=== PATIENT | female | born 1995 | race Caucasian/White ===

== ENCOUNTER 2020-01-01 09:00 | Outpatient (RCR) | payer OTHER, SELFPAY ==
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
== END 2020-01-01 09:05 | disposition home or self-care (01) ==
LOC: PT 09:00
PROVIDERS: PCP Nurse Practitioner Family; Visit Provider Nurse Practitioner Family
DX: M25.552 Pain in left hip (principal); M25.551 Pain in right hip
CPT/HCPCS: 20560; 97010; 97014; 97035; 97110; 97163; G0283

== ENCOUNTER → 2020-05-17 09:22 | Outpatient (CLI) | payer OTHER, SELFPAY ==
[2020-05-17 10:04] LABS: Basophils % 0.2 % (0.1-2.0); Eosinophils # 0.2 K/mm3 (0.0-0.4); Eosinophils % 2.4 % (0.1-12.0); Hematocrit 41.3 % (37.0-47.0); Hemoglobin 14.5 g/dL (12.2-16.2); Lymphocytes # 2.3 K/mm3 (0.7-4.5); Lymphocytes % 28.8 % (10-50); Mean Corpuscular HGB Conc 35.1 g/dL (31.8-35.4); Mean Corpuscular Hemoglobin 33.3 pg (27.0-31.2); Mean Corpuscular Volume 94.7 fl (81-99); Mean Platelet Volume 7.7 fl (7.4-10.4); Monocytes # 0.4 K/mm3 (0.1-1.0); Monocytes % 4.7 % (1.7-9.3); Neutrophils # 5.1 K/mm3 (1.8-7.8); Platelet Count 317 K/mm3 (142-424); Red Blood Count 4.36 M/mm3 (4.20-5.40); Red Cell Distribution Width 12.8 % (11.5-17.5); White Blood Count 7.9 K/mm3 (4.8-10.8)
[2020-05-18 08:40] LABS: HIV Screen 4th Generation wRfx Non Reactive (Non Reactive)
[2020-05-18 11:01] LABS: Hepatitis B Surface Antigen Negative (Negative); Hepatitis C Antibody <0.1 s/co ratio (0.0-0.9); Rapid Plasma Reagin Ab Titer Non Reactive (NonRea<1:1); Rubella Antibodies, IgG 1.18 index (Immune >0.99)
== END ==
PROVIDERS: Visit Provider Nurse Practitioner Obstetrics & Gynecology
DX: Z34.90 Encounter for supervision of normal pregnancy, unspecified, unspecified trimester (principal)
CPT/HCPCS: 36415; 85025; 86592; 86703; 86762; 86850; 87340; 87380; G0432

== ENCOUNTER → 2020-05-26 14:31 | Outpatient (CLI) | payer OTHER, SELFPAY ==
--- NOTE | 2020-05-26 14:32 | US_ITS ---
PROCEDURE: US OB TRANSVAGINAL CLINICAL INDICATION: for dates Evaluate gestational age COMPARISON: No exams were available for comparison FINDINGS: An intrauterine gestational sac is present with a pole with a crown-rump length of 2.1cm correlating to gestational age of 8weeks 6days. heart tones are present with an FHR of 170bpm. Yolk sac is noted. Nabothian cyst is noted. 2.6 cm corpus luteum cyst of the right ovary IMPRESSION: Live IUP at 8 weeks 6 days Estimated due date by Ultrasound is 12/30/2020 Dictated by: Eriberto Isidro MD 05/26/2020 16:50 Electronically signed by Eriberto Isidro MD in [place] 05/26/2020 16:50
== END ==
PROVIDERS: PCP Nurse Practitioner Family; Visit Provider Nurse Practitioner Obstetrics & Gynecology
DX: Z34.90 Encounter for supervision of normal pregnancy, unspecified, unspecified trimester (principal)
CPT/HCPCS: 76817

== ENCOUNTER → 2020-07-22 05:37 | Outpatient (CLI) | payer OTHER, SELFPAY ==
[2020-07-24 00:24] LABS: Covid-19 Nasal PCR Sendout Lex POSITIVE
== END ==
PROVIDERS: PCP Nurse Practitioner Family; Visit Provider Emergency Medicine
DX: Z20.828 Contact with and (suspected) exposure to other viral communicable diseases (principal); U07.1 COVID-19
CPT/HCPCS: U0004

== ENCOUNTER 2020-07-23 20:21 | Emergency (ER) | payer OTHER, SELFPAY ==
[2020-07-23 20:45] VITALS: BP 128/96; PULSE 82; RESP 18; TEMP 36.8; O2SAT 98; BMI 27.3
--- NOTE | 2020-07-23 20:51 | XR_ITS ---
PROCEDURE: XR CHEST PORTABLE CLINICAL HISTORY: sob, cough Cough with fever and shortness of COMPARISON: No exams were available for comparison FINDINGS: The cardiomediastinal silhouette and pulmonary vascularity are within normal limits. The lungs are clear without infiltrates, suspicious nodules, or pleural effusions. The superior aspect of the lung apices are not included on the exam. No acute bony abnormalities. IMPRESSION: No acute findings. Dictated by: Eriberto Isidro MD 07/24/2020 06:43 Eriberto Isidro MD in [place] 07/24/2020 06:43
[2020-07-23 20:59] LABS: Basophils % 0.3 % (0.1-2.0); Eosinophils # 0.1 K/mm3 (0.0-0.4); Eosinophils % 1.7 % (0.1-12.0); Hematocrit 37.6 % (37.0-47.0); Hemoglobin 13.6 g/dL (12.2-16.2); Lymphocytes # 1.8 K/mm3 (0.7-4.5); Lymphocytes % 30.6 % (10-50); Mean Corpuscular HGB Conc 36.3 g/dL (31.8-35.4); Mean Corpuscular Volume 96.5 fl (81-99); Mean Platelet Volume 7.8 fl (7.4-10.4); Monocytes # 0.4 K/mm3 (0.1-1.0); Neutrophils # 3.6 K/mm3 (1.8-7.8); Neutrophils % 61.5 % (37.0-80.0); Platelet Count 243 K/mm3 (142-424); Red Cell Distribution Width 13.4 % (11.5-17.5); White Blood Count 5.9 K/mm3 (4.8-10.8)
[2020-07-23 21:18] LABS: Anion Gap 14.8 mEq/L (5-15); Blood Urea Nitrogen 8 mg/dl (7-17); Calcium 9.2 mg/dl (8.4-10.2); Carbon Dioxide 22 mmol/L (22.0-30.0); Chloride 102 mmol/L (98-107); Creatinine Clearance Estimated 226 mL/min (50-200); Estimated Glomerular Filt Rate 149 ml/min (>60); GFR (African American) 180 ML/MIN (>60); Glucose 94 mg/dl (74-100); Potassium 3.8 mmoL/L (3.5-5.1); Sodium 135 mmol/L (136-145)
[2020-07-23 21:20] LABS: Coronavirus 19 IgG Antibody Negative (Negative); Coronavirus 19 IgM Antibody Negative (Negative)
--- NOTE | 2020-07-23 21:37 | HMH.EDGENADL ---
ED Disposition Clinical Impression: Dehydration Qualifiers: Weeks of gestation: 17 weeks Qualified Code(s): Z3A.17 - 17 weeks gestation of Disposition: Home, Self-Care Condition on Discharge: Good Prescriptions: Doxylamine Succinate/Vit B6 [Bonjesta ER 20-20 mg Tablet] 1 each PO Q6H #24 tab.ir. Prescription Printed Promethazine HCl 12.5 mg PO Q6H #24 tab Prescription Printed Referrals: Matilde Spear APRN [Primary Care Provider] - Paco Blue MD [Staff Physician] - - Critical Care Critical Care Time: No Attestation: On 07/23/20, the high probability of a clinically significant, sudden or life threatening deterioration of the following system(s) required my full and direct attention, intervention and personal management. The time I documented below is in addition to time spent performing reported procedures but includes the following listed in this critical care notation. Medical Decision Making - Medical Records Medical records reviewed: Yes: I reviewed the patient's medical records. - Keegan Inquiry Pt receiving controlled substance: No Vital Signs: 07/23/20 20:45 07/23/20 21:39 07/23/20 21:57 Temperature 98.2 F Temperature Source Oral Pulse Rate [Right] 82 73 72 Respiratory Rate 18 16 16 Blood Pressure [Right Arm] 128/96 H 116/80 111/92 H Blood Pressure Mean [Right Arm] 106 92 98 Blood Pressure Source [Right Arm] Automatic Cuff Blood Pressure Position [Right Arm] Sitting 02 Sat by Pulse Oximetry 98 100 100 Oxygen Delivery Method Room Air Room Air 07/23/20 22:52 Temperature Temperature Source Pulse Rate [Right] 74 Respiratory Rate 18 Blood Pressure [Right Arm] 130/74 Blood Pressure Mean [Right Arm] 92 Blood Pressure Source [Right Arm] Blood Pressure Position [Right Arm] 02 Sat by Pulse Oximetry 96 Oxygen Delivery Method Room Air - Lab Data Lab Results 07/23/20 20:35: WBC 5.9, RBC 3.90 L, Hgb 13.6, Hct 37.6, MCV 96.5, MCH 35.0 H, MCHC 36.3 H, RDW 13.4, Plt Count 243, MPV 7.8, Neut % (Auto) 61.5, Lymph % (Auto) 30.6, [place] % (Auto) 6.0, Eos % (Auto) 1.7, Baso % (Auto) 0.3, Neut # (Auto) 3.6, Lymph # (Auto) 1.8, [place] # (Auto) 0.4, Eos # (Auto) 0.1, Baso # (Auto) 0.0 07/23/20 20:35: Sodium 135 L, Potassium 3.8, Chloride 102, Carbon Dioxide 22, Anion Gap 14.8, BUN 8, Creatinine 0.50 L, Estimated Creat Clear 226, Estimated GFR 149, Est GFR ( Amer) 180, Glucose 94, Calcium 9.2 07/23/20 20:35: SARS-CoV-2 IgG Ab (Rapid) Negative, SARS-CoV-2 IgM Ab (Rapid) Negative 07/23/20 20:35: Total Bilirubin 0.5, Direct Bilirubin 0.1, Conjugated Bilirubin 0.0, Indirect Bilirubin 0.4, Unconjugated Bilirubin 0.4, AST 51 H, ALT 65, Alkaline Phosphatase 64, Total Protein 7.8, Albumin 4.3, Amylase 83, Lipase 173 07/23/20 21:50: Urine Color Yellow, Urine Appearance Clear, Urine pH 7.0, Ur Specific [place] 1.015, Urine Protein Negative, Urine Glucose (UA) Negative, Urine Ketones Negative, Urine Blood Negative, Urine Nitrate Negative, Urine Bilirubin Negative, Urine Urobilinogen 0.2, Ur Leukocyte Esterase Trace, Urine WBC 3-5, Ur Squamous Epith Cells 3-5 Result diagrams: 07/23/20 20:35 07/23/20 20:35 Orders (Tests/Meds): ED MEDICATIONS Generic Name Dose Route Start Last Admin Trade Name Saida PRN Reason Stop Dose Admin Doxylamine Succinate/Pyridoxine 1 tab 07/23/20 21:15 07/23/20 21:22 Diclegis 10mg-10mg Tablet PO 08/22/20 21:14 1 tab BID LUZ Administration Lactated Ringer's 1,000 mls @ 999 mls/hr 07/23/20 21:00 07/23/20 20:54 Lactated Ringer's 1000 Ml Bag IV 07/23/20 22:00 999 mls/hr .Q1H1M LUZ Administration Sodium Chloride 1,000 mls @ 999 mls/hr 07/23/20 22:00 07/23/20 21:49 Sod Chlor 0.9% 1000ml Bag IV 07/23/20 23:00 999 mls/hr .Q1H1M LUZ Administration Discontinued Medications Generic Name Dose Route Start Last Admin Trade Name Freq PRN Reason Stop Dose Admin Ondansetron HCl 4 mg 07/23/20 20:53 07/23/20 20:54 Zofran
--- NOTE | 2020-07-23 21:38 | PC.NURSE ---
performed ultrasound at bedside. Was able to see baby moving on screen and heart rate was 160.
[2020-07-23 21:39] VITALS: BP 116/80; PULSE 73; RESP 16; O2SAT 100
[2020-07-23 21:50] LABS: Alanine Aminotransferase 65 U/L (12-78); Albumin Level 4.3 g/dl (3.5-5.0); Alkaline Phosphatase 64 U/L (38-126); Amylase 83 U/L (30-110); Aspartate Amino Transferase 51 U/L (14-36); Bilirubin,Direct 0.1 mg/dl (0.0-0.4); Bilirubin,Indirect 0.4 mg/dL (0.0-0.9); Bilirubin,Total 0.5 mg/dl (0.2-1.3); Bilirubin,Unconjugated 0.4 mg/dL (0.0-1.1); Lipase 173 U/L (23-300); Total Protein,Serum 7.8 g/dl (6.3-8.2)
[2020-07-23 21:57] VITALS: BP 111/92; PULSE 72; RESP 16; O2SAT 100
[2020-07-23 21:57] LABS: Microscopic, Urine URINE MICROSCOPIC (MICROSCOPIC)
[2020-07-23 22:00] LABS: Appearance,Urine CLEAR (Clear); Bilirubin,Urine Negative (Negative); Blood, Urine Negative (Negative); Color,Urine YELLOW (Yellow); Glucose,Urine (UA) Negative (Negative); Ketones,Urine Negative (Negative); Leukocyte Esterase,Urine TRACE (Negative); Nitrate,Urine Negative (Negative); Protein,Urine Negative (Negative); Specific Gravity, Urine 1.015 (1.005-1.030); Urobilinogen,Urine 0.2 EU/dl (0.2)
--- NOTE | 2020-07-23 22:07 | PC.NURSE ---
PT resting, attempting PO challenge
--- NOTE | 2020-07-23 22:48 | PC.NURSE ---
Dr. HANG WYATT
[2020-07-23 22:52] VITALS: BP 130/74; PULSE 74; RESP 18; O2SAT 96
[2020-07-23 23:26] VITALS: BP 116/83; PULSE 87; RESP 16; TEMP 37.1; O2SAT 98
[2020-07-30 09:41] LABS: Vitamin B6 6.3 ug/L (2.0-32.8)
== END 2020-07-23 23:27 | disposition home or self-care (01) ==
PROVIDERS: Emergency Provider Emergency Medicine; PCP Nurse Practitioner Family
DX: Z20.828 Contact with and (suspected) exposure to other viral communicable diseases (principal); Z3A.17 17 weeks gestation of pregnancy; E86.0 Dehydration
CPT/HCPCS: 71045; 80048; 80076; 81001; 82150; 83690; 84207; 85025; 86328; 96365; 96366; 96375; 99284; J2405

== ENCOUNTER → 2020-08-15 14:56 | Outpatient (CLI) | payer OTHER, SELFPAY ==
--- NOTE | 2020-08-15 14:56 | US_ITS ---
PROCEDURE: US OB /MATERNAL DETAIL CLINICAL INDICATION: 20 wk gestation of anatomy--- COMPARISON: US US OB TRANSVAGINAL from 05/26/2020 FINDINGS: There is a single live fetus present which is in cephalic presentation. heart and body motion noted. The cervix is closed and measures 3 cm transabdominal. Placenta is posterior and grade 1. Complete survey performed and was unremarkable on the submitted images as in PACS. No discrete anomalies identified on survey imaging by technologist. Active fetus. Three-vessel cord with satisfactory umbilical cord insertion. 4- chamber heart noted. Survey of brain & ventricles Unremarkable. Face and neck survey unremarkable. Diaphragm and chest views unremarkable. Abdomen: Both kidneys noted and unremarkable. Stomach noted and satisfactory. Spine: Survey of the spine satisfactory with no anomalies identified nor imaged. Both arms and legs noted. Amniotic Fluid: Adequate. Maternal adnexa: No significant findings. Measurements: Average ultrasound age 20weeks 2days. Gestational Age 20weeks 3days Estimated due date by ultrasound age 0212/31/2020. Estimated weight 344g BPD = 20weeks 4days OFD = 20weeks 3days HC = 19weeks 5days AC = 20weeks 3days FL = 20weeks 3days Growth Percentile= 38Percent% Heart Rate = 146bpm Cerebellum = 20weeks 5days Humerus = 20weeks 4days HC/AC is 1.13 CI is 0.8 FL/BPD is 0.7 FL/AC is 0.22 IMPRESSION: There is a single live fetus in cephalic presentation with an average ultrasound age of 20 weeks and 2 days. No obvious anomalies. Please see above for detail. All parameters correlate. Dictated by: Eriberto Isidro MD 08/16/2020 11:34 Eriberto Isidro MD in [place] 08/16/2020 11:34
== END ==
PROVIDERS: PCP Nurse Practitioner Family; Visit Provider Nurse Practitioner Obstetrics & Gynecology
DX: Z34.90 Encounter for supervision of normal pregnancy, unspecified, unspecified trimester (principal); Z3A.20 20 weeks gestation of pregnancy
CPT/HCPCS: 76811

== ENCOUNTER → 2020-10-04 07:28 | Outpatient (CLI) | payer OTHER, SELFPAY ==
[2020-10-04 08:02] LABS: Glucose,Fasting 88 mg/dl (74-100)
[2020-10-04 11:34] LABS: Glucose 1 Hour 162 mg/dL (74-100)
== END ==
PROVIDERS: Visit Provider Nurse Practitioner Obstetrics & Gynecology
DX: Z34.90 Encounter for supervision of normal pregnancy, unspecified, unspecified trimester (principal)
CPT/HCPCS: 36415; 82951

== ENCOUNTER → 2020-10-19 20:55 | Outpatient (CLI) | payer OTHER, SELFPAY ==
[2020-10-19 21:28] LABS: Glucose,Fasting 80 mg/dl (74-100)
[2020-10-19 22:41] LABS: Glucose 1 Hour 162 mg/dL (74-100)
[2020-10-20 00:24] LABS: Glucose 2 Hour 135 mg/dL (74-100)
[2020-10-20 00:57] LABS: Glucose 3 Hour 109 mg/dL (74-100)
== END ==
PROVIDERS: Visit Provider Nurse Practitioner Obstetrics & Gynecology
DX: Z34.90 Encounter for supervision of normal pregnancy, unspecified, unspecified trimester (principal); O99.814 Abnormal glucose complicating childbirth
CPT/HCPCS: 82951

== ENCOUNTER → 2020-10-26 18:11 | Outpatient (CLI) | payer OTHER, SELFPAY ==
[2020-10-26 18:12] LABS: Microscopic, Urine URINE MICROSCOPIC (MICROSCOPIC)
[2020-10-26 19:37] LABS: Appearance,Urine SL CLOUDY (Clear); Bilirubin,Urine Negative (Negative); Blood, Urine Negative (Negative); Color,Urine YELLOW (Yellow); Glucose,Urine (UA) Negative (Negative); Ketones,Urine Negative (Negative); Leukocyte Esterase,Urine 2+ (Negative); Nitrate,Urine Negative (Negative); Protein,Urine Negative (Negative); Specific Gravity, Urine 1.025 (1.005-1.030); Urobilinogen,Urine 0.2 EU/dl (0.2)
[2020-10-26 19:55] LABS: Bacteria,Urine 2+ /lpf; Calcium Oxalate Crystals,Urine Trace /lpf
== END ==
PROVIDERS: Visit Provider Nurse Practitioner Obstetrics & Gynecology
DX: Z34.90 Encounter for supervision of normal pregnancy, unspecified, unspecified trimester (principal); Z3A.30 30 weeks gestation of pregnancy
CPT/HCPCS: 81001; 87086

== ENCOUNTER → 2020-11-30 18:19 | Outpatient (CLI) | payer OTHER, SELFPAY | PROVIDERS: PCP Nurse Practitioner Obstetrics & Gynecology; Visit Provider Nurse Practitioner Obstetrics & Gynecology | DX: Z34.90 Encounter for supervision of normal pregnancy, unspecified, unspecified trimester (principal) | CPT/HCPCS: 86403 ==

== ENCOUNTER → 2020-12-02 13:39 | Outpatient (CLI) | payer OTHER, SELFPAY ==
--- NOTE | 2020-12-02 13:39 | US_ITS ---
PROCEDURE: US OB /MATERNAL DETAIL CLINICAL INDICATION: LGA Large for gestational age COMPARISON: US US OB /MATERNAL DETAIL from 08/15/2020 FINDINGS: There is a single live fetus present which is in cephalic presentation. heart and body motion noted. The placenta is posterior. The cervix is closed and measures 3 cm. ES is 12 cm. Biophysical profile is 8 of 8. Average ultrasound age is 36 weeks 3 days with an estimated weight of 2934 g which is 63 percentile. BPD 36 weeks 3 days OFD 35 weeks 5 days, HC 35 weeks 4 days, AC 36 weeks 4 days, FL 36 weeks 5 days. All parameters correlate IMPRESSION: Live IUP in cephalic presentation with an average ultrasound age of 36 weeks 3 days as described above. Dictated by: Eriberto Isidro MD 12/03/2020 07:42 Eriberto Isidro MD in [place] 12/03/2020 07:42
== END ==
PROVIDERS: PCP Nurse Practitioner Family; Visit Provider Nurse Practitioner Obstetrics & Gynecology
DX: O36.60X0 Maternal care for excessive fetal growth, unspecified trimester, not applicable or unspecified (principal)
CPT/HCPCS: 76811; 76819

== ENCOUNTER 2020-12-21 05:12 | Inpatient (IN) | payer OTHER, SELFPAY ==
[2020-12-21 05:14] VITALS: BP 122/82; PULSE 95; RESP 18; TEMP 36.7; O2SAT 98; BMI 33.1
[2020-12-21 06:27] LABS: Microscopic, Urine URINE MICROSCOPIC (MICROSCOPIC)
[2020-12-21 06:37] LABS: Basophils % 0.2 % (0.1-2.0); Eosinophils # 0.1 K/mm3 (0.0-0.4); Eosinophils % 1.1 % (0.1-12.0); Hematocrit 35.6 % (37.0-47.0); Hemoglobin 11.6 g/dL (12.2-16.2); Lymphocytes # 2.6 K/mm3 (0.7-4.5); Lymphocytes % 23.1 % (10-50); Mean Corpuscular HGB Conc 32.4 g/dL (31.8-35.4); Mean Corpuscular Hemoglobin 30.3 pg (27.0-31.2); Mean Corpuscular Volume 93.5 fl (81-99); Mean Platelet Volume 8.3 fl (7.4-10.4); Monocytes # 0.7 K/mm3 (0.1-1.0); Monocytes % 6.6 % (1.7-9.3); Neutrophils # 7.8 K/mm3 (1.8-7.8); Neutrophils % 68.9 % (37.0-80.0); Platelet Count 342 K/mm3 (142-424); Red Blood Count 3.81 M/mm3 (4.20-5.40); Red Cell Distribution Width 14.3 % (11.5-17.5); White Blood Count 11.3 K/mm3 (4.8-10.8)
[2020-12-21 06:56] LABS: Appearance,Urine CLEAR (Clear); Bilirubin,Urine Negative (Negative); Blood, Urine Negative (Negative); Color,Urine YELLOW (Yellow); Glucose,Urine (UA) Negative (Negative); Ketones,Urine Negative (Negative); Leukocyte Esterase,Urine TRACE (Negative); Nitrate,Urine Negative (Negative); PH,Urine 7.5 (5.0-8.5); Protein,Urine Negative (Negative); Urobilinogen,Urine 0.2 EU/dl (0.2)
[2020-12-21 07:23] LABS: Coronavirus 19 IgG Antibody Positive (Negative); Coronavirus 19 IgM Antibody Negative (Negative)
[2020-12-21 08:15] LABS: Barbiturates Screen,Urine Negative ng/ml (<200)
[2020-12-21 08:16] LABS: Amphetamine/Metha Screen,Urine Negative ng/ml (<1000); Benzodiazepines Screen,Urine Negative ng/ml (<200)
[2020-12-21 08:17] LABS: Cannabinoid Screen,Urine Negative ng/ml (<50)
[2020-12-21 08:18] LABS: Cocaine Screen,Urine Negative ng/ml (<300); Methadone Screen,Urine Negative ng/ml (<300)
[2020-12-21 08:19] LABS: Opiate Screen,Urine Negative ng/ml (<300)
[2020-12-21 08:20] LABS: Phencyclidine Screen,Urine Negative ng/ml (<25)
--- NOTE | 2020-12-21 08:33 | HMH.LABNOT ---
Labor Note - Subjective: Date: 12/21/20 Time: 08:33 regular contraction - Objective: NST:: Reactive Contractions:: every 2-3 minutes Cervical Dilation:: 2 Effacement:: 50% Station: -2 Membranes: artificially ruptured - Fetus: Monitoring?: Yes monitoring type:: Internal and External Comment:: I inserted an IUPC. - Assessment: Labor progressing?: Yes Cephalopelvic disproportion?: No Patient Problems: All Active Problems Dehydration (Acute) (Acute) - Plan: Anesthesia for epidural?: Yes Continue to labor down?: Yes Plan for ?: No Continue to monitor?: Yes Start pushing?: No
--- NOTE | 2020-12-21 08:39 | HMH.OBAPHP ---
OB - H&P: HPI Antepartum - History of Present Illness Chief complaint: Term , occasional contractions History of present illness: She is a 25-year-old 1 para 0 at 39 weeks gestational age. She has been having contractions and occasional discomfort. As result of that we have elected to induce her labor at term. - History of Present Criteria for establishing EDC:: LMP confirmed by 1st trimester US care: good care Ultrasounds: normal 1st trimester US, normal mid trimester US Obstetrical complications: none Medical complications: none [facility] History I have reviewed the patient's past medical history: Yes *Have you ever received a pneumonia vaccine?: No *Have you received a flu vaccine this season?: Yes Other Surgeries: Yes: No Previous Surgery. No: Amputation: No Fractures: No - *Social History Smoking Status: Never smoker Alcohol Intake: never Alcohol Intake Frequency:: holidays/special occasions only Substance Use Type: denies use *Occupational Status:: employed Housing: house Household Members: family *Travel in the last 8 weeks: None Family Hx:: Heart Attack, Cancer Para: 0 Review of Systems - Review of Systems Review of systems:: pertinent systems reviewed and negative unless documented below Meds Home Medications Medication Instructions Recorded Confirmed Type prenat.vits,mellisa,[id number]-[id number] 1 tab PO DAILY 07/05/20 12/21/20 History Allergies Allergy/AdvReac Type Severity Reaction Status Date / Time No Known Drug Allergies Allergy Verified 12/15/20 09:12 OB - H&P: Exam - Physical Exam Vital signs: Temp Pulse Resp BP Pulse Ox 98.0 F 95 H 18 122/82 98 12/21/20 05:14 12/21/20 05:14 12/21/20 05:14 12/21/20 05:14 12/21/20 05:14 - Constitutional no acute distress - Routine HEENT Exam Head: Present: normocephalic Eye: Present: EOMI, PERRL ENT: Present: mucous membranes moist - Routine Neck Exam Present: supple, full ROM - Routine Respiratory Exam Absent: accessory muscle use (good air entry bilaterally), respiratory distress, wheezes, crackles - Routine Cardiovascular Exam Present: RRR. Absent: murmur - Routine Abdominal Exam Present: soft, normoactive bowel sounds. Absent: tenderness, distended, guarding - Routine Rectal Exam Patient deferred: visual exam, digital exam - Routine Exam Patient deferred: external exam, groin exam, perineal exam - Routine Extremities Exam Present: full ROM. Absent: cyanosis, edema - Routine Skin Exam Present: intact. Absent: cyanosis - Routine Neurological Exam Present: alert, oriented X3 - Routine Psychiatric Exam Present: normal affect OB - Results - Labs Labs: Short CBC 12/21/20 Range/Units 05:50 WBC 11.3 H (4.8-10.8) K/mm3 Hgb 11.6 L (12.2-16.2) g/dL Hct 35.6 L (37.0-47.0) % Plt Count 342 (142-424) K/mm3 Urine 12/21/20 Range/Units 05:50 Urine Color Yellow (Yellow) Urine Appearance Clear (Clear) Urine pH 7.5 (5.0-8.5) Ur Specific [place] 1.020 (1.005-1.030) Urine Protein Negative (Negative) Urine Glucose (UA) Negative (Negative) OB - A/P Antepartum (1) Normal delivery at term Status: Acute - Additional Plan Planning to breastfeed?: Yes Plan: induction Additional Information:: I have ruptured her membranes and
--- NOTE | 2020-12-21 10:50 | HMH.LABNOT ---
Labor Note - Subjective: Date: 12/21/20 Time: 10:50 regular contraction - Objective: NST:: Reactive Contractions:: every 2-3 minutes Cervical Dilation:: 3 Effacement:: 50% Station: -2 Membranes: artificially ruptured - Fetus: Monitoring?: Yes monitoring type:: Internal and External - Assessment: Labor progressing?: Yes Cephalopelvic disproportion?: No Patient Problems: All Active Problems Dehydration (Acute) Normal delivery at term (Acute) (Acute) - Plan: Anesthesia for epidural?: Yes Continue to labor down?: Yes Plan for ?: No Continue to monitor?: Yes Start pushing?: No Comment:: She is progressing and doing well. She has an IUPC. Heart tones are normal. She now has her epidural and is comfortable.
--- NOTE | 2020-12-21 13:56 | P.PN_ITS ---
[facility] Anesthesia Checklist - Patient Identification Patient Identification: Arm Band - Structural Data Admitted From: Home Planned Operative Procedure/s: labor epidural Consent for Planned Operative Procedure(s) Verified: Yes Verified Documents: Surgical Consent, History and Physical - NPO Status Verified Time NPO: 00:00 - Additional verifications Anesthesia Reactions: No - Airway Assessment C-Spine Mobility Assessed: Yes (mp2) TMJ Mobility Assessed: Yes Dentition: Good Dentition - Neurological Assessment Level of Consciousness: Awake, Alert - Anesthesia Plan Anesthesia Risk discussed: Yes Anesthesia Plan: Verified ASA Class: II Anesthesia Type: Epidural [facility] History I have reviewed the patient's past medical history: Yes *Have you ever received a pneumonia vaccine?: No *Have you received a flu vaccine this season?: Yes Anesthesia experience/problems:: nac Other Surgeries: Yes: No Previous Surgery. No: Amputation: No Fractures: No - *Social History Smoking Status: Never smoker Alcohol Intake: never Alcohol Intake Frequency:: holidays/special occasions only Substance Use Type: denies use *Occupational Status:: employed Housing: house Household Members: family *Travel in the last 8 weeks: None Family Hx:: Heart Attack, Cancer Para: 0
--- NOTE | 2020-12-21 14:11 | HMH.LABNOT ---
Labor Note - Subjective: Date: 12/21/20 Time: 13:40 regular contraction - Objective: NST:: Reactive Contractions:: every 2-3 minutes Cervical Dilation:: 4 Effacement:: 75% Station: -1 Membranes: artificially ruptured - Fetus: Monitoring?: Yes monitoring type:: Internal and External - Assessment: Labor progressing?: Yes Cephalopelvic disproportion?: No Patient Problems: All Active Problems Dehydration (Acute) Normal delivery at term (Acute) (Acute) - Plan: Anesthesia for epidural?: Yes Continue to labor down?: Yes Plan for ?: No Continue to monitor?: Yes Start pushing?: No Comment:: She is doing well and she is now 4 cm. Baby's head is come down.
--- NOTE | 2020-12-21 15:41 | HMH.LABNOT ---
Labor Note - Subjective: Date: 12/21/20 Time: 15:10 - Objective: NST:: Reactive Contractions:: every 2-3 minutes Cervical Dilation:: 4-5 Effacement:: 90% Station: -1 Membranes: artificially ruptured - Fetus: Monitoring?: Yes monitoring type:: Internal and External - Assessment: Labor progressing?: Yes Cephalopelvic disproportion?: No Patient Problems: All Active Problems Dehydration (Acute) Normal delivery at term (Acute) (Acute) - Plan: Anesthesia for epidural?: Yes Continue to labor down?: Yes Plan for ?: No Continue to monitor?: Yes Start pushing?: No
--- NOTE | 2020-12-21 17:13 | HMH.LABNOT ---
Labor Note - Subjective: Date: 12/21/20 Time: 17:13 regular contraction - Objective: NST:: Reactive Contractions:: every 2-3 minutes Cervical Dilation:: 5 Effacement:: 100% Station: -1 Membranes: artificially ruptured - Fetus: Monitoring?: Yes monitoring type:: Internal and External - Assessment: Labor progressing?: Yes Cephalopelvic disproportion?: No Patient Problems: All Active Problems Dehydration (Acute) Normal delivery at term (Acute) (Acute) - Plan: Anesthesia for epidural?: Yes Continue to labor down?: Yes Plan for ?: No Continue to monitor?: Yes Start pushing?: No
--- NOTE | 2020-12-21 19:13 | HMH.LABNOT ---
Labor Note - Subjective: Date: 12/21/20 Time: 19:13 regular contraction - Objective: NST:: Reactive Contractions:: every 2-3 minutes Cervical Dilation:: 9 Effacement:: 100% Station: +1 Membranes: artificially ruptured - Fetus: Monitoring?: Yes monitoring type:: Internal and External - Assessment: Labor progressing?: Yes Cephalopelvic disproportion?: No Patient Problems: All Active Problems Dehydration (Acute) Normal delivery at term (Acute) (Acute) - Plan: Anesthesia for epidural?: Yes Continue to labor down?: Yes Plan for ?: No Continue to monitor?: Yes Start pushing?: Yes
[2020-12-21 19:54] LABS: Cord Blood PH 7.34 (7.35-7.45)
--- NOTE | 2020-12-21 20:04 | HMH.DN ---
- Delivery Note Delivery Date:: 12/21/20 Delivery Time:: 19:32 Anesthesia Type: Epidural Was labor medically induced?: Yes Induction method: per pitocin protocol Gestational age (weeks): 39 delivered prior to 39 weeks?: No Gender: Male at 1 minute: 7 at 5 minutes: 9 LAC or MLE?: LAC Delivery Procedure:: She is a 25-year-old 1 para 0 at 39 weeks gestational age. She has been feeling pressure and discomfort. As result of that she was offered induction of labor. She was started on IV oxytocin and had her membranes ruptured. Under labor epidural she progressed to full dilation and delivered spontaneously a liveborn male child at 7:32 PM in the evening of December 21, 2020. On deliver the head the anterior shoulder then delivered followed by the rest the infant's body atraumatically. The oropharynx and nasopharynx were bulb suctioned. The baby was vigorous and we allowed the cord to continue to pulsate for approximately 1 minute. The cord was then doubly clamped and cut. The baby was placed on the mother's abdomen for further care. The nurses assigned Apgars of 7 at 1 minute and 9 at 5 minutes. We then obtained cord blood as well as cord pH. Using gentle traction on the cord and countertraction on the fundus I was able to easily deliver the placenta intact. He had a normal three-vessel cord. She had 1/4 degree perineal laceration. The rectal mucosa was closed with interrupted 3-0 Vicryl Rapide suture. I then used a second layer to reapproximate this layer with 2-0 Vicryl suture. The sphincter muscle was then grasped with Allis clamps and closed with 2-0 PDS suture. I placed 3 sutures individually tagged them and then tied them in the order in which they were placed. I then closed the deep muscles of the perineum using 2-0 Vicryl suture. The vaginal closed was closed with a single interrupted [id number] 3-0 Vicryl Rapide suture. The perineal skin was then closed with subcuticular 2-0 Vicryl suture in an interrupted fashion. Her estimated blood loss was approximately 600 cc. All sponge and instrument counts were correct. All needle counts were correct. We will make sure she is on a good stool softener and make sure she has some pain relief. Laceration:: vaginal Placental Delivery Description: Spontaneous
[2020-12-21 21:48] LABS: Hematocrit 33.5 % (37.0-47.0)
[2020-12-22 00:29] VITALS: BP 122/74; PULSE 90; RESP 18; TEMP 36.8; O2SAT 98
[2020-12-22 04:05] VITALS: BP 99/64; PULSE 82; RESP 17; TEMP 36.4; O2SAT 98
[2020-12-22 08:43] LABS: Hematocrit 28.9 % (37.0-47.0)
--- NOTE | 2020-12-22 08:59 | HMH.ACPN2 ---
Internal Medicine - PN: Subj *Date: 12/22/20 *Time: 08:59 Interval history: She is doing well this morning. She is eating and drinking and ambulating. She is breast-feeding. Her lochia is normal. She is still quite tender and she does have 1/4 degree perineal laceration. Exam Vital signs and Labs for Last 24 Hours: Temp Pulse Resp BP Pulse Ox 97.6 F 82 17 99/64 L 98 12/22/20 04:05 12/22/20 04:05 12/22/20 04:05 12/22/20 04:05 12/22/20 04:05 Laboratory Results - last 24 hr 12/21/20 19:51: Cord ABG pH 7.34 L 12/21/20 21:20: Hgb 11.0 L, Hct 33.5 L 12/22/20 08:22: Hgb 10.0 L, Hct 28.9 L I & O for Last 24 hours: Intake & Output 12/19/20 12/20/20 12/21/20 12/22/20 11:59 11:59 11:59 11:59 Weight 218 lb - Constitutional no acute distress - *Routine HEENT Exam Head: Present: normocephalic Eye: Present: EOMI, PERRL ENT: Present: mucous membranes moist Assessment and Plan (1) Normal delivery at term Status: Acute Category: Medical Code(s): O80 - Encounter for full-term uncomplicated delivery (2) Fourth degree laceration of perineum during delivery, Status: Acute Category: Medical Code(s): O70.3 - Fourth degree perineal laceration during delivery - Assessment and plan all Dx Assessment and Plan for all problems:: She is doing well this morning. Her perineum is quite sore but otherwise she is breast-feeding and ambulating. She is eating. We will plan to send her home tomorrow. I will be leaving town and Dr. Vidal will assume care and discharge her tomorrow.
[2020-12-22 19:57] VITALS: BP 132/84; PULSE 96; RESP 18; TEMP 36.8; O2SAT 99
[2020-12-23 00:03] VITALS: BP 125/62; PULSE 89; RESP 18; TEMP 36.8; O2SAT 99
[2020-12-23 04:55] VITALS: BP 130/74; PULSE 95; RESP 18; TEMP 36.7
[2020-12-23 08:30] VITALS: BP 107/60; PULSE 93; RESP 20; TEMP 36.8; O2SAT 99
--- NOTE | 2020-12-23 13:37 | P.DS_ITS ---
General - General Admission date:: 12/21/20 Discharge date: 12/23/20 Hospital Course Hospital Course: vaginal delivery complicated by 4th degree laceration current pain greater posterior/rectal than vaginal lochia appropriate tolerating regular diet, ambulating and voiding without difficulty Rhogam Administration: Not Indicated Objective Vital signs: Temp Pulse Resp BP Pulse Ox 98.2 F 93 H 20 107/60 L 99 12/23/20 08:30 12/23/20 08:30 12/23/20 08:30 12/23/20 08:30 12/23/20 08:30 Narrative: CONSTITUTIONAL: no acute distress HEENT: mucous membranes moist PULMONARY: breathing unlabored without audible wheezes CV: no tachycardia or visible JVD; normal LE peripheral pulses ABD: soft, NT/ND, no guarding : fundus firm at/below umbilicus SKIN: no visible rash or lesions EXT: 1+ edema LEs NEURO: alert/oriented, no altered mental status PSYCH: appropriate mood and demeanor without visible anxiety/depression DS: Diagnosis - Discharge Diagnosis (1) Normal delivery at term Status: Acute (2) Fourth degree laceration of perineum during delivery, Status: Acute Discharge Plan - Patient Discharge Instructions ACTIVITY: Continue current activity DIET: regular diet Additional Instructions: Nothing in the vagina for 6 weeks No tub baths Drink plenty of water No heavy lifting Patient Instructions: Depression, Hemorrhage, DI for Labor and Delivery, Vaginal , DI for Pre-eclampsia, [facility] Post Discharge Instructions, Preventing the Spread of Coronavirus Discharge Instructions - Follow up Plan Disposition: Home, Self-Long-Term Medications: Home Medications Medication Instructions Recorded Confirmed Type prenat.vits,mellisa,[id number] 1 tab PO DAILY 07/05/20 12/21/20 History Hydromorphone HCl [Dilaudid 2mg 2 mg PO Q4HP PRN #20 tablet 12/23/20 Rx tablet] Ibuprofen [Motrin 400mg 800 mg PO Q6HP PRN #40 tab 12/23/20 Rx tablet] Prescriptions/Medication Reconciliation: New Hydromorphone HCl [Dilaudid 2mg tablet] 2 mg PO Q4HP PRN #20 tablet PRN Reason: SEVERE PAIN Ibuprofen [Motrin 400mg tablet] 800 mg PO Q6HP PRN #40 tab PRN Reason: Mild To Moderate Pain Acetaminophen [Acetaminophen 325mg tab] 650 mg PO Q4HP PRN tablet PRN Reason: Mild Pain No Action prenat.vits,mellisa,[id number] 1 tab PO DAILY - Problem Reconciliation Problems Reviewed?: Yes
== END 2020-12-23 14:35 | disposition home or self-care (01) | DRG 768 ==
PROVIDERS: Admitting Provider Nurse Practitioner Obstetrics & Gynecology; PCP Nurse Practitioner Family; Visit Provider Nurse Practitioner Obstetrics & Gynecology
DX: O70.3 Fourth degree perineal laceration during delivery (principal); Z37.0 Single live birth; Z3A.39 39 weeks gestation of pregnancy
CPT/HCPCS: 59409; 36415; 59025; 80305; 81001; 82800; 85014; 85018; 85025; 86328; 86850; C1758; J2405

== ENCOUNTER → 2020-12-30 16:01 | Outpatient (CLI) | payer OTHER, SELFPAY | PROVIDERS: Visit Provider Obstetrics & Gynecology | DX: R39.89 Other symptoms and signs involving the genitourinary system (principal) | CPT/HCPCS: 87070; 87077; 87086; 87088; 87186; 87205 ==

== ENCOUNTER → 2023-06-27 23:49 | Outpatient (CLI) | payer OTHER, SELFPAY | LOC: LAB.DROPOF 23:49 | PROVIDERS: PCP Nurse Practitioner Family; Visit Provider Obstetrics & Gynecology | DX: Z34.91 Encounter for supervision of normal pregnancy, unspecified, first trimester (principal) | CPT/HCPCS: 87086 ==

== ENCOUNTER → 2023-07-01 15:00 | Outpatient (CLI) | payer OTHER, SELFPAY ==
[2023-07-01 16:01] LABS: Basophils % 0.3 % (0.1-2.0); Eosinophils # 0.2 K/mm3 (0.0-0.4); Eosinophils % 1.8 % (0.1-12.0); Hematocrit 40.7 % (37.0-47.0); Hemoglobin 13.7 g/dL (12.2-16.2); Lymphocytes # 1.9 K/mm3 (0.7-4.5); Lymphocytes % 22.7 % (10-50); Mean Corpuscular HGB Conc 33.5 g/dL (31.8-35.4); Mean Corpuscular Hemoglobin 31.7 pg (27.0-31.2); Mean Corpuscular Volume 94.7 fl (81-99); Mean Platelet Volume 7.9 fl (7.4-10.4); Monocytes # 0.4 K/mm3 (0.1-1.0); Monocytes % 5.1 % (1.7-9.3); Neutrophils # 5.8 K/mm3 (1.8-7.8); Neutrophils % 70.1 % (37.0-80.0); Platelet Count 375 K/mm3 (142-424); Red Cell Distribution Width 12.9 % (11.5-17.5); White Blood Count 8.3 K/mm3 (4.8-10.8)
[2023-07-03 08:24] LABS: HIV Screen 4th Generation wRfx Non Reactive (Non Reactive)
[2023-07-03 10:00] LABS: Rubella Antibodies, IgG 2.14 index (Immune >0.99)
[2023-07-03 11:00] LABS: Rapid Plasma Reagin Ab Titer Non Reactive (NonRea<1:1)
[2023-07-18 09:34] LABS: Hepatitis B Surface Antigen Negative
[2023-07-18 09:35] LABS: Hepatitis C Antibody Non Reactive
== END ==
PROVIDERS: PCP Nurse Practitioner Family; Visit Provider Obstetrics & Gynecology
DX: Z34.91 Encounter for supervision of normal pregnancy, unspecified, first trimester (principal); Z3A.08 8 weeks gestation of pregnancy
CPT/HCPCS: 36415; 85025; 86593; 86703; 86762; 86850; 86870; 87340; 87380; G0432

== ENCOUNTER → 2023-07-03 14:36 | Outpatient (CLI) | payer OTHER, SELFPAY | PROVIDERS: PCP Nurse Practitioner Family; Visit Provider Obstetrics & Gynecology | DX: Z34.91 Encounter for supervision of normal pregnancy, unspecified, first trimester (principal); Z3A.09 9 weeks gestation of pregnancy | CPT/HCPCS: 36415; 86850; 86870 ==

== ENCOUNTER → 2023-07-10 21:24 | Outpatient (CLI) | payer OTHER, SELFPAY ==
[2023-07-13 14:19] LABS: Neisseria gonorrhoeae, NAA Negative (Negative)
== END ==
PROVIDERS: PCP Nurse Practitioner Family; Visit Provider Obstetrics & Gynecology
DX: Z34.91 Encounter for supervision of normal pregnancy, unspecified, first trimester (principal); Z3A.10 10 weeks gestation of pregnancy
CPT/HCPCS: 87491; 87591

== ENCOUNTER → 2023-08-15 12:01 | Outpatient (CLI) | payer OTHER, SELFPAY | PROVIDERS: PCP Nurse Practitioner Family; Visit Provider Nurse Practitioner | DX: R00.2 Palpitations (principal); R60.9 Edema, unspecified; Z3A.16 16 weeks gestation of pregnancy | CPT/HCPCS: 93270 ==

== ENCOUNTER → 2023-08-19 14:25 | Outpatient (CLI) | payer OTHER, SELFPAY ==
[2023-08-19 14:46] LABS: Chloride 105 mmol/L (98-107); Potassium 3.8 mmoL/L (3.5-5.1); Sodium 136 mmol/L (136-145)
[2023-08-19 14:49] LABS: Anion Gap 9.8 mEq/L (5-15); Blood Urea Nitrogen 11 mg/dl (7-17); Calcium 9.5 mg/dl (8.4-10.2); Carbon Dioxide 25 mmol/L (22.0-30.0); Estimated Glomerular Filt Rate 99 ml/min (>60); GFR (African American) 120 ML/MIN (>60); Glucose 119 mg/dl (74-100)
[2023-08-19 15:07] LABS: Free Thyroxine Index 2.8 ug/dL (5.93-13.13); T4 (Thyroxine) 13.5 ug/dl (5.53-11.0); Triiodothryronine (T3) Uptake 21 % (23.5-40.5)
[2023-08-19 15:21] LABS: Thyroid Stimulating Hormone 1.96 uIU/mL (0.465-4.68)
== END ==
PROVIDERS: PCP Nurse Practitioner Family; Visit Provider Nurse Practitioner
DX: R00.2 Palpitations (principal); Z34.92 Encounter for supervision of normal pregnancy, unspecified, second trimester; Z3A.14 14 weeks gestation of pregnancy
CPT/HCPCS: 80048; 84436; 84443; 84479

== ENCOUNTER → 2023-09-04 10:54 | Outpatient (CLI) | payer OTHER, SELFPAY ==
--- NOTE | 2023-09-04 10:59 | CA_ITS ---
APPROVED REPORT EXAM: Comprehensive 2D, Doppler, and color-flow Echocardiogram Communications Lead: Madiha Marshall RVT Ht: 5 ft 9 in Wt: 200lbs BSA: 2.07 BP: 110/72 mmHg Indications: SOA,FATIGUE,17 WEEK PREG,PALPS 2D Dimensions LVOT 2.09 cm (M/F) 1.5-2.5 LA Volume 50.10 mL LA Volume Index 24.20 mL/m2 (M/F) 16-34 M-Mode Dimensions RVDd 2.25 cm (0.9-2.6) LA Diam 3.44 cm (1.9-4.0) LVDd 4.97 cm (3.5-5.7) Ao Diam 2.65 cm (2.0-3.7) LVDs 3.08 cm (3.5-5.7) IVSd 0.86 cm (0.6-1.1) PWd 0.57 cm (0.6-1.1) EF (Teich) 68.00% FS 38.00% EDV (Teich) 116.60 mL TAPSE 3.02 (<1.7) ESV (Teich) 37.30 mL LV Diastology E Decel Time 193.00 (160-240 msec) E/A Ratio 1.7 MED E' 13.20 (< 7 cm/sec) E'/MED E' Ratio 7.29 (>14) LAT E' 22.20 (<10 cm/sec) E/LAT E' Ratio 4.33 (>14) Aortic Valve AO Peak GR. 10.60 mmHg Mitral Valve MV E Max Shawn. 96.00 (40-130 cm/s) MV A Velocity 56.00 (40-130 cm/s) E/A Ratio 1.71 MV Decel. Time 193.00 (160-240 ms) MV PHT 57.00 ms Pulmonary Valve PV Peak Velocity 99.00 (50-150 cm/s) Tricuspid Valve TR P. Velocity 233.00 cm/s RAP Estimate 10.00 mmHg RVSP 31.70 mmHg Left Ventricle The left ventricle is normal size. The left ventricular systolic function is normal. The left ventricular ejection fraction is within the normal range. There is normal left ventricular wall thickness. There is normal LV segmental wall motion. The left ventricular diastolic function is normal. LVEF is 55%. Right Ventricle The right ventricle is normal size. The right ventricular systolic function is normal. Atria The left atrium size is normal. The right atrium size is normal. There is no Doppler evidence of interatrial shunt. Aortic Valve The aortic valve opens well. There is no aortic valvular stenosis. No aortic regurgitation is present. Mitral Valve The mitral valve is normal in structure. No evidence of mitral valve stenosis. Trace mitral regurgitation. Tricuspid Valve The tricuspid valve leaflets are thin and pliable. Mild tricuspid regurgitation. RVSP is 20-25 mmHg. Pulmonic Valve The pulmonary valve is normal in structure. Trace pulmonic regurgitation. Great Vessels The aortic root is normal in size. The ascending aorta is normal in size. IVC is normal in size and collapses >50% with inspiration. Pericardium There is no pericardial effusion. Other Information Study Quality: Fair Conclusion Normal biventricular systolic function. Mild tricuspid regurgitation. Electronically signed by : Jaymie Najera MD 09/07/2023 00:07:54
== END ==
LOC: RT 10:55
PROVIDERS: PCP Nurse Practitioner Family; Visit Provider Nurse Practitioner
DX: Z34.92 Encounter for supervision of normal pregnancy, unspecified, second trimester (principal); R00.2 Palpitations; Z3A.18 18 weeks gestation of pregnancy
CPT/HCPCS: 36415; 86850; 93306

== ENCOUNTER → 2023-10-09 14:39 | Outpatient (CLI) | payer OTHER, SELFPAY | PROVIDERS: PCP Nurse Practitioner Family; Visit Provider Obstetrics & Gynecology | DX: Z34.90 Encounter for supervision of normal pregnancy, unspecified, unspecified trimester (principal) ==

== ENCOUNTER → 2023-10-10 14:40 | Outpatient (CLI) | payer OTHER, SELFPAY | PROVIDERS: PCP Nurse Practitioner Family; Visit Provider Obstetrics & Gynecology | DX: Z34.92 Encounter for supervision of normal pregnancy, unspecified, second trimester (principal); Z3A.24 24 weeks gestation of pregnancy | CPT/HCPCS: 86850 ==

== ENCOUNTER → 2023-11-11 08:36 | Outpatient (CLI) | payer OTHER, SELFPAY ==
[2023-11-11 09:15] LABS: Basophils % 0.2 % (0.1-2.0); Eosinophils # 0.1 K/mm3 (0.0-0.4); Eosinophils % 1.3 % (0.1-12.0); Hematocrit 33.5 % (37.0-47.0); Hemoglobin 11.9 g/dL (12.2-16.2); Lymphocytes # 1.9 K/mm3 (0.7-4.5); Lymphocytes % 21.2 % (10-50); Mean Corpuscular HGB Conc 35.7 g/dL (31.8-35.4); Mean Corpuscular Hemoglobin 33.3 pg (27.0-31.2); Mean Corpuscular Volume 93.3 fl (81-99); Mean Platelet Volume 6.8 fl (7.4-10.4); Monocytes # 0.4 K/mm3 (0.1-1.0); Monocytes % 4.4 % (1.7-9.3); Neutrophils # 6.3 K/mm3 (1.8-7.8); Neutrophils % 72.9 % (37.0-80.0); Platelet Count 309 K/mm3 (142-424); Red Blood Count 3.59 M/mm3 (4.20-5.40); Red Cell Distribution Width 14.4 % (11.5-17.5); White Blood Count 8.7 K/mm3 (4.8-10.8)
[2023-11-11 09:20] LABS: Glucose,Fasting 94 mg/dl (74-100)
[2023-11-11 11:15] LABS: Glucose 1 Hour 156 mg/dL (74-100)
== END ==
PROVIDERS: Obstetrics & Gynecology; PCP Nurse Practitioner Family; Visit Provider Obstetrics & Gynecology
DX: Z34.92 Encounter for supervision of normal pregnancy, unspecified, second trimester (principal); Z3A.15 15 weeks gestation of pregnancy
CPT/HCPCS: 36415; 82951; 85025; 86850

== ENCOUNTER → 2023-11-21 08:18 | Outpatient (CLI) | payer OTHER, SELFPAY ==
[2023-11-21 09:04] LABS: Glucose,Fasting 97 mg/dl (74-100)
[2023-11-21 09:56] LABS: Glucose 1 Hour 141 mg/dL (74-100)
== END ==
LOC: LAB 08:18
PROVIDERS: PCP Nurse Practitioner Family; Visit Provider Obstetrics & Gynecology
DX: Z34.93 Encounter for supervision of normal pregnancy, unspecified, third trimester (principal); Z3A.29 29 weeks gestation of pregnancy
CPT/HCPCS: 36415; 82951

== ENCOUNTER 2023-12-12 08:57 | Outpatient (CLI) | payer OTHER, SELFPAY ==
--- NOTE | 2023-12-12 09:01 | US_ITS ---
PROCEDURE: US OB BIOPHYSICAL PROFILE CLINICAL INDICATION: gestational diabetes and ES COMPARISON: No exams were available for comparison FINDINGS: Transabdominal sonographic images of the uterus were obtained. From her established due date she is 32 weeks 3 days. The following parameters are obtained: Viable Fetus in the cephalic presentation with and anterior/posterior lateral wrap placenta grade 2. Average ultrasound age is 34weeks 1day Estimated weight 2,350g, 5 lbs 3 oz. Measurements: heart Rate = 136bpm BPD = 34weeks 4days HC = 34weeks 2days AC = 34weeks 5days FL = 32weeks 6days HC/AC is 1.0 FL/BPD is 0.74 FL/AC is 0.21 75Percentile Amniotic fluid index: 14.98cm Qualitative AFV:2 Breathing movements: 2 Gross Body Movements: 2 Tone: 2 Biophysical profile score: 8 No obvious anomalies evident.Kidneys, profile, nasion, bladder, four-chamber heart, three-vessel cord appear normal. IMPRESSION: 1. Viable fetus in the cephalic presentation with an anterior posterior laterally wrapped placenta grade 2. 2. The fluid is within normal limits with an amniotic fluid index of 14.98 cm. 3. Biophysical profile is 8/8 with good breathing movement and movement seen. 4. There has been good interval growth with the fetus currently 75th percentile. AC is 2 weeks ahead. Dictated by: Paco Blue MD 12/12/2023 15:00 Paco Blue MD in OV 12/12/2023 15:00
== END 2023-12-12 23:59 ==
LOC: RAD 08:58
PROVIDERS: PCP Nurse Practitioner Family; Visit Provider Obstetrics & Gynecology
DX: O24.419 Gestational diabetes mellitus in pregnancy, unspecified control (principal); O28.8 Other abnormal findings on antenatal screening of mother; Z3A.32 32 weeks gestation of pregnancy
CPT/HCPCS: 76816; 76819

== ENCOUNTER 2024-01-28 05:14 | Inpatient (IN) | payer OTHER, SELFPAY ==
[2024-01-28] VITALS (7 sets, daily range): BP systolic 98–130; BP diastolic 54–83; PULSE 65–104; RESP 12–18; TEMP 36.4–36.9; O2SAT 97–98; BMI 31.7
[2024-01-28] MEDS: LACTATED RINGERS 1000ML 1,000 ML 25 ML IV (05:25)
[2024-01-28 05:59] LABS: Microscopic, Urine URINE MICROSCOPIC (MICROSCOPIC)
[2024-01-28 06:07] LABS: Appearance,Urine CLEAR (Clear); Bilirubin,Urine Negative (Negative); Blood, Urine Negative (Negative); Color,Urine YELLOW (Yellow); Glucose,Urine (UA) Negative (Negative); Ketones,Urine Negative (Negative); Leukocyte Esterase,Urine Negative (Negative); Nitrate,Urine Negative (Negative); Protein,Urine Negative (Negative); Urobilinogen,Urine 0.2 EU/dl (0.2)
[2024-01-28 06:22] LABS: Alanine Aminotransferase 17 U/L (12-78); Albumin Level 3.6 g/dl (3.5-5.0); Albumin/Globulin Ratio 1.2 (1.1-1.8); Alkaline Phosphatase 179 U/L (38-126); Anion Gap 10.8 mEq/L (5-15); Aspartate Amino Transferase 23 U/L (14-36); Bilirubin,Total 0.3 mg/dl (0.2-1.3); Blood Urea Nitrogen 8 mg/dl (7-17); Calcium 8.5 mg/dl (8.4-10.2); Carbon Dioxide 20 mmol/L (22.0-30.0); Chloride 109 mmol/L (98-107); Creatinine Clearance Estimated 213 mL/min (50-200); Estimated Glomerular Filt Rate 118 ml/min (>60); GFR (African American) 143 ML/MIN (>60); Globulin 3.1 g/dL (1.3-3.2); Glucose 90 mg/dl (74-100); Potassium 3.8 mmoL/L (3.5-5.1); Sodium 136 mmol/L (136-145); Total Protein,Serum 6.7 g/dl (6.3-8.2)
[2024-01-28 06:33] LABS: Basophils % 0.5 % (0.1-2.0); Eosinophils # 0.1 K/mm3 (0.0-0.4); Eosinophils % 1.1 % (0.1-12.0); Hematocrit 33.8 % (37.0-47.0); Hemoglobin 11.1 g/dL (12.2-16.2); Lymphocytes # 2.9 K/mm3 (0.7-4.5); Lymphocytes % 29.6 % (10-50); Mean Corpuscular Hemoglobin 30.6 pg (27.0-31.2); Mean Platelet Volume 8.1 fl (7.4-10.4); Monocytes # 0.7 K/mm3 (0.1-1.0); Monocytes % 6.7 % (1.7-9.3); Neutrophils # 6.1 K/mm3 (1.8-7.8); Neutrophils % 62.1 % (37.0-80.0); Platelet Count 366 K/mm3 (142-424); Red Blood Count 3.63 M/mm3 (4.20-5.40); Red Cell Distribution Width 15.6 % (11.5-17.5); White Blood Count 9.7 K/mm3 (4.8-10.8)
[2024-01-28 06:57] LABS: Bacteria,Urine Trace /lpf; Mucus,Urine Trace /lpf; WBC,Urine Occasional #/hpf (0-3)
--- NOTE | 2024-01-28 07:18 | EXP.OB.APHP ---
OB - H&P: HPI Antepartum History of Present Illness Chief complaint: Scheduled elective History of present illness: Mrs Eunice Mancia is a very pleasant 28 yo at 39w1d, based off of LMP confirmed by 1st trimester ultrasound, who presents to [facility] Labor and Delivery for scheduled elective primary . She has vaginal delivery with 4th degree laceration followed by break down of repair and RV fistula. She is electing for . She has had good care. History of Present Criteria for establishing EDC:: LMP confirmed by 1st trimester US care: good care Ultrasounds: normal mid trimester US Obstetrical complications: none Medical complications: none Labs Blood type: A (+) positive Rubella: immune RPR/VDRL: nonreactive HBsAG: negative PFSH [facility] Disclaimer: The information contained in this section may have been updated after the patient was seen, as this information can be updated by other users. 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 , antepartum Hx of migraines Surgical History No significant past surgical history Family History Other Cancer Social History Smoking Status: Never smoker alcohol intake: never substance use type: denies use current occupational status: employed Travel in the last 8 weeks: None household members: family housing: house Review of Systems Review of Systems Review of systems:: pertinent systems reviewed and negative unless documented below Meds Home Medications and Allergies Home Medications Medication Instructions Recorded Confirmed Type vits no.126-ferrous fum 1 tab PO DAILY 06/27/23 01/24/24 History 28 mg iron-folic acid 800 mcg tablet (Classic ) promethazine 12.5 mg tablet 12.5 mg PO TID PRN nausea and 06/27/23 01/24/24 Rx vomiting #30 tabs New Prescriptions to Start Prescriptions: Allergies Allergy/AdvReac Type Severity Reaction Status Date / Time No Known Drug Allergies Allergy Verified 01/24/24 11:14 OB - H&P: Exam Physical Exam Vital signs: Temp Pulse Resp BP Pulse Ox O2 Del Method 98.4 F 104 H 18 130/83 98 Room Air 01/28/24 05:48 01/28/24 05:48 01/28/24 05:48 01/28/24 05:48 01/28/24 05:48 01/28/24 05:48 Constitutional no acute distress and cooperative Routine HEENT Exam Head: Present normocephalic and atraumatic Eye: Absent conjunctivae pink ENT: Present mucous membranes moist Routine Neck Exam Present full ROM Routine Respiratory Exam Present CTA bilaterally and normal respiratory effort Routine Cardiovascular Exam Present RRR Routine Abdominal Exam Present soft (Gravid); Absent tenderness Routine Rectal Exam Patient deferred: visual exam Routine Exam Patient deferred: external exam Routine Extremities Exam Present edema (+1 bilateral lower extremity edema) and full ROM; Absent calf tenderness Routine Neurological Exam Present alert and moving all extremities Routine Psychiatric Exam Present normal affect and cooperative OB - Results Labs Labs: Short CBC 01/28/24 Range/Units 05:45 WBC 9.7 (4.8-10.8) K/mm3 Hgb 11.1 L (12.2-16.2) g/dL Hct 33.8 L (37.0-47.0) % Plt Count 366 (142-424) K/mm3 BMP 01/28/24 05:45 Sodium 136 Potassium 3.8 Chloride 109 H Carbon Dioxide 20 L BUN 8 Creatinine 0.60 Glucose 90 Calcium 8.5 Liver Function 01/28/24 Range/Units 05:45 Total Bilirubin 0.3 (0.2-1.3) mg/dl AST 23 (14-36) U/L ALT 17 (12-78) U/L Alkaline Phosphatase 179 H (38-126) U/L Albumin 3.6 (3.5-5.0) g/dl Urine 01/28/24 Range/Units 05:45 Urine Color Yellow (Yellow) Urine Appearance Clear (Clear) Urine pH 7.0 (5.0-8.5) Ur Specific [place] 1.020 (1.005-1.030) Urine Protein Negative (Negative) Urine Glucose (UA) Negative (Negative) OB - A/P Antepartum (1) 39 weeks gestation of : Status: Acute (2) Fourth degree laceration of perineum during delivery, : Status: Acute (3) Anti-M isoimmunization affecting , antepartum: Status: Acute Additional Plan Planning to breastfeed?: Yes Additional Information:: Admit to [facility] for scheduled elective secondary to history of with 4th degree lacerations, break down of repair and subsequent RV fistula Reviewed risks, benefits, alternatives, expectations and possible complications of surgery. All questions addressed and answered. She voiced understanding of risks and possible complications. Consent form was signed. Proceed with primary
--- NOTE | 2024-01-28 08:47 | P.OP_ITS ---
Date of procedure: 01/28/24 Pre-op Diagnosis:: 1. IUP at 39w1d 2. Elective 3. History of with 4th degree perineal laceration, breakdown of repair and subsequent RV fistula 4. Anti-M isoimmunisation Post-op Diagnosis:: 1. IUP at 39w1d 2. Elective 3. History of with 4th degree perineal laceration, breakdown of repair and subsequent RV fistula 4. Anti-M isoimmunisation Procedure performed:: Primary Low Transverse Section Surgeon:: Ida Reeder DO Photographic Equipment Assembler(s):: Rosemarie Calix DO LOADING UNIT TOOL SETTER:: Wilfredo Davis Anesthesia: spinal Estimated blood loss (mL): 600 Clinical Note:: Mrs Eunice Mancia is a very pleasant 28 yo at 39w1d, based off of LMP confirmed by 1st trimester ultrasound, who presents to [facility] Labor and Delivery for scheduled elective primary . She has vaginal delivery with 4th degree laceration followed by break down of repair and RV fistula. She is electing for . She has had good care. Operative findings:: 1. Live female baby, Gala, weighing 7 lb 11 oz, APGARs 8 (1 min), 9 (min ) 2. Grossly normal appearing uterus, bilateral fallopian tubes and ovaries Operative note:: The risks, benefits and alternatives of the procedure were reviewed with the patient. Informed consent was obtained. Patient was taken to the operating room where spinal anesthesia was placed. The patient received 2 grams of Ancef preoperatively. Patient was placed in dorsal supine position with a leftward tilt. SCDs in place. Raymond catheter was inserted and was draining clear urine prior to the start of the procedure. heart tones were obtained. Patient was then prepped and draped in normal sterile fashion. Allis clamp test was performed to ensure adequate anesthesia. A Pfannenstiel skin incision was made 2 cm above pubic symphysis. This was carried through to underlying layer of fascia. Fascia was incised in midline, extended laterally with Yang scissors. Superior aspect of fascial incision was grasped with two Aly clamps, elevated up, and rectus muscle dissected off bluntly and sharply with Yang scissors. Inferior aspect of fascial incision was grasped with two Lay clamps, elevated up, and rectus muscle dissected off bluntly and sharply with Yang scissors. The retcus muscle was then in the midline and the peritoneum was entered bluntly with a digit. Peritoneal incision was then extended superiorly and inferiorly with good visualization of the bladder. Gray retractor was inserted. The lower uterine segment was incised in a transverse fashion. Meconicium stained amniotic fluid was noted. Head was delivered without difficulty. Remainder of body was delivered without difficulty. Mouth and nares were bulb suctioned. Spontaneous cry was noted. Delayed cord clamping was performed for 60 seconds. The umbilical cord was clamped and cut. The infant was handed to awaiting pediatric staff in stable condition. Dr. Jason was present. Apgars were 8(1 min), 9(5 min). Cord blood was obtained. Gentle traction on the umbilical cord and uterine fundal massage delivered the placenta. Placenta was intact. Uterus was cleared of all clots and debris with a moist laparotomy sponge. Corners of the uterine incision were grasped with Allis clamps. The uterine incision was reapproximated with # 1 Vicryl suture in a running, locked stitch. Second layer of the same stitch was used to imbricate the incision. Vesicouterine peritoneum was reapproximated in a running locked stitch with 0- Vicryl suture. Hemostasis was noted. Posterior cul-de-sac was cleaned with moist laparotomy sponge. Gutters cleared of all clots and debris with a moist laparotomy sponge. Reinspection of lower uterine segment demonsrated excellent hemostasis. At this point all instruments and sponges were removed from the pelvis.? The peritoneum was grasped with Umm clamps x 3. The peritoneum was reapproximated with 0 Vicryl suture in a running stitch. The corners of the fascia were grasped with Aly clamps, and the fascia was reapproximated with two # 1 Vicryl suture overlapped to the right of midline. Subcutaneous tissue was irrigated with clear return of fluids. The subcutaneous tissue was reapproximated with 3-0 Vicryl. The skin was reapproximated with Insorb mikaela. Telfa was placed over closed Pfannenstiel skin incision. At the end of the procedure, the uterus was firm with minimal vaginal bleeding. Patient tolerated the procedure well. Instrument, sponges and needle counts were correct x 2. Mom and baby were transported to recovery room in stable condition. Condition: stable Disposition: floor Specimens:: 1. Cord blood Complications:: None
--- NOTE | 2024-01-28 09:25 | P.PNANES_ITS ---
[facility] Disclaimer: The information contained in this section may have been updated after the patient was seen, as this information can be updated by other users. 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 , antepartum Hx of migraines Surgical History No significant past surgical history Family History Other Cancer Social History Smoking Status: Never smoker alcohol intake: never substance use type: denies use current occupational status: employed Travel in the last 8 weeks: None household members: family housing: house [facility] Anesthesia Checklist Patient Identification Patient Identification: Verbal (Name & ) Structural Data Admitted From: Inpatient Planned Operative Procedure/s: c/section Consent for Planned Operative Procedure(s) Verified: Yes NPO Status Verified Time NPO: 00:00 Additional verifications Anesthesia Reactions: No Airway Assessment Mallampati Score:: Class II C-Spine Mobility Assessed: Yes TMJ Mobility Assessed: Yes Dentition: Good Dentition Neurological Assessment Level of Consciousness: Awake, Alert and Appropriate Anesthesia Plan Anesthesia Risk discussed: Yes Anesthesia Plan: Verified ASA Class: II Anesthesia Type: Spinal Preoperative Comments Pre-Operative Comments: tap block discussed w pt, pt agrees to proceed
--- NOTE | 2024-01-28 09:27 | P.PNANES_ITS ---
[facility] Anesthesia Record Part I Anesthesia Record I Intake, IV Amount: 1,800 Hydration: Adequate Estimated blood loss (mL): 650 Urine output (mL): 350 Blood Pressure: 103/59 SaO2: 98 Pulse Rate: 78 Airway Patency: Patent Respiratory Rate: 12 Temperature: 97.5 F Patient is:: Awake and Stable Stable to PACU at:: 09:05
[2024-01-28] MEDS: LACTATED RINGERS 1000ML 1,000 ML 125 ML IV (09:45)
[2024-01-28] MEDS: ACETAMINOPHEN 500MG TAB 1000 MG PO ×3 (09:45→20:09)
[2024-01-28] MEDS: OXYTOCIN/RINGERS LACTATE 30 UNITS/500 ML BAG 40 UNITS IV (09:45)
[2024-01-28 12:03] LABS: Amphetamine/Metha Screen,Urine Negative ng/ml (<1000)
[2024-01-28 12:04] LABS: Barbiturates Screen,Urine Negative ng/ml (<200)
[2024-01-28 12:05] LABS: Cannabinoid Screen,Urine Negative ng/ml (<50)
[2024-01-28 12:06] LABS: Cocaine Screen,Urine Negative ng/ml (<300); Opiate Screen,Urine Negative ng/ml (<300)
[2024-01-28] MEDS: OXYCODONE 5MG IMMEDIATE RELEASE TABLET 5 MG PO ×3 (12:06→23:24)
[2024-01-28 12:07] LABS: Phencyclidine Screen,Urine Negative ng/ml (<25)
[2024-01-28 12:11] LABS: Benzodiazepines Screen,Urine Negative ng/ml (<200)
[2024-01-28] MEDS: HYDROMORPHONE 2MG/ML SYRINGE 1 MG IV (13:02)
[2024-01-28 13:11] LABS: Microscopic,Cath URINE MICROSCOPIC (MICROSCOPIC)
[2024-01-28] MEDS: KETOROLAC 30MG/ML VIAL 30 MG IV ×2 (14:04→20:09)
[2024-01-28 14:21] LABS: Appearance,Urine/Cath CLEAR (Clear); Bilirubin,Cath Negative (Negative); Blood, Urine/Cath Negative (Negative); Color,Urine/Cath YELLOW (Yellow); Glucose,Urine/Cath (UA) Negative (Negative); Ketones,Urine/Cath Negative (Negative); Leukocyte Esterase,Cath Negative (Negative); Nitrate,Cath Negative (Negative); Protein,Urine/Cath Negative (Negative); Urobilinogen,Cath 0.2 EU/dl (0.2)
[2024-01-28 14:24] LABS: Bacteria,Urine/Cath TRACE /lpf; WBC,Urine/Cath Occasional #/hpf (0-3)
[2024-01-28] MEDS: CEFAZOLIN SODIUM 2 GM in 0.9 % SODIUM CHLORIDE 100 ML IV ×2 (15:37→23:35)
[2024-01-28 16:28] LABS: Methadone Screen,Urine Negative ng/ml (<300)
[2024-01-28] MEDS: SENNA 8.6MG TABLET 8.59999999999999964 MG PO (23:24)
[2024-01-28] MEDS: SIMETHICONE 80MG CHEWABLE TABLET 160 MG PO (23:24)
[2024-01-29] MEDS: IBUPROFEN 400 MG TABLET 800 MG PO ×3 (02:54→18:14)
[2024-01-29] MEDS: ACETAMINOPHEN 500MG TAB 1000 MG PO ×4 (02:54→20:24)
[2024-01-29 06:58] LABS: Basophils % 0.3 % (0.1-2.0); Eosinophils # 0.1 K/mm3 (0.0-0.4); Eosinophils % 0.9 % (0.1-12.0); Hematocrit 29.8 % (37.0-47.0); Hemoglobin 9.5 g/dL (12.2-16.2); Lymphocytes # 2.4 K/mm3 (0.7-4.5); Lymphocytes % 20.5 % (10-50); Mean Corpuscular Hemoglobin 30.4 pg (27.0-31.2); Mean Corpuscular Volume 94.9 fl (81-99); Mean Platelet Volume 8.9 fl (7.4-10.4); Monocytes # 0.7 K/mm3 (0.1-1.0); Monocytes % 6.3 % (1.7-9.3); Neutrophils # 8.4 K/mm3 (1.8-7.8); Neutrophils % 71.9 % (37.0-80.0); Platelet Count 305 K/mm3 (142-424); Red Blood Count 3.14 M/mm3 (4.20-5.40); White Blood Count 11.7 K/mm3 (4.8-10.8)
[2024-01-29 08:19] VITALS: BP 120/77; PULSE 92; RESP 18; TEMP 36.8; O2SAT 97
--- NOTE | 2024-01-29 09:04 | P.PN_ITS ---
Subjective *Date: 01/29/24 *Time: 09:04 Interval history: Leta Mancia is a 28-year-old day #1 following a primary low- transverse delivery at 39 weeks gestation. was uncomplicated. Routine delivery and course thus far. Patient states that she is not doing better urged to void when she sits on the toilet she is able to pee without any difficulty or dysuria. Her urine is clear. She has adequate output. Reports her pain is well-controlled. States she does have some back pain but is from sleeping in an uncomfortable bed. She is bottlefeeding her female . Her lochia is scant. Patient is ambulating and tolerating p.o. without difficulty or nausea and vomiting.. Exam Data for Last 24 hours Vital signs and Labs for Last 24 Hours: Temp Pulse Resp BP Pulse Ox O2 Del Method 98.3 F 92 H 18 120/77 97 Room Air 01/29/24 08:19 01/29/24 08:19 01/29/24 08:19 01/29/24 08:19 01/29/24 08:19 01/29/24 08:19 Laboratory Results - last 24 hr 01/28/24 05:45: Urine Opiates Screen Negative, Urine Methadone Screen Negative, Ur Barbituates Screen Negative, Ur Phencyclidine Scrn Negative, Ur Amphetamines Screen Negative, U Benzodiazepines Scrn Negative, Urine Cocaine Screen Negative, U Marijuana (THC) Screen Negative 01/28/24 : Urine Color Yellow, Urine Appearance Clear, Urine pH 7.0, Ur Specific [place] 1.020, Urine Protein Negative, Urine Glucose (UA) Negative, Urine Ketones Negative, Urine Blood Negative, Urine Nitrate Negative, Urine Bilirubin Negative, Urine Urobilinogen 0.2, Ur Leukocyte Esterase Negative, Urine WBC Occasional, Ur Squamous Epith Cells 3-5, Urine Bacteria Trace 01/29/24 05:56: WBC 11.7 H, RBC 3.14 L, Hgb 9.5 L, Hct 29.8 L, MCV 94.9, MCH 30.4, MCHC 32.0, RDW 16.0, Plt Count 305, MPV 8.9, Neut % (Auto) 71.9, Lymph % (Auto) 20.5, [place] % (Auto) 6.3, Eos % (Auto) 0.9, Baso % (Auto) 0.3, Neut # (Auto) 8.4 H, Lymph # (Auto) 2.4, [place] # (Auto) 0.7, Eos # (Auto) 0.1, Baso # (Auto) 0.0 I & O for Last 24 hours: Intake & Output 01/26/24 01/27/24 01/28/24 01/29/24 23:59 23:59 23:59 23:59 Intake Total 1800 / 1800 Balance 1800 / 1800 Weight 215 lb Narrative: General: patient is alert oriented in no acute distress and responds appropriately to questions. Appears to be in minimal pain. Sitting up in the chair and doing well HEENT: NCAT, EOMI, moist mucous membranes, neck supple with full ROM Cardiovascular: RRR +S1/S2, no murmurs or rubs Pulmonary: Clear to auscultation bilaterally, nonlabored breathing, symmetric chest rise Abdominal: Fundus at the umbilicus, firm, and tenderness appropriate for the po stpartum period. Extremities: trace edema, no tenderness or cyanosis noted Skin: Normal turgor, intact, warm. Negative for erythema, pallor, petechia, or lesions. Skin incision is covered by Medipore tape. No excessive bleeding noted Neurologic: Negative for sensory or motor deficit Psychiatric: Normal affect, normal thought process, good judgment and insight, no depression or anxious mood appreciated. Constitutional Constitutional: no acute distress *Routine HEENT Exam Head: Present normocephalic Eye: Present EOMI and PERRL ENT: Present mucous membranes moist *Routine Neck Exam Neck: Present supple; Absent lymphadenopathy *Routine Respiratory Exam Respiratory: Present CTA bilaterally *Routine Cardiovascular Exam Cardiovascular: Present RRR *Routine Abdominal Exam Abdominal: Present soft and normoactive bowel sounds; Absent tenderness *Routine Extremities Exam Extremities: Absent cyanosis, clubbing or edema *Routine Skin Exam Skin: Present warm; Absent rash *Routine Neurological Exam Neurological: Present alert and oriented X3 Assessment and Plan *Assessment and plan (1) 39 weeks gestation of : Status: Acute Category: Medical Code(s): Z3A.39 - 39 weeks gestation of (2) delivery delivered: Status: Acute Category: Medical Code(s): O82 - Encounter for delivery without indication (3) Anemia: Status: Acute Qualifiers: Anemia type: other cause Other causes of anemia: acute posthemorrhagic Qualified Code(s): D62 - Acute posthemorrhagic anemia Category: Medical Code(s): D64.9 - Anemia, unspecified Plan Stable. POD#1 s/p PLTCS -Doing well. VSS. Serial lochia and fundal checks. -Hemoglobin: 11.1--> 9.5 - asymptomatic anemia noted. Vitals stable. Continue monitoring. DC with Fe -EBL: 600mL. doing well currently, continue to monitor -A+/antibody negative -Bottle feeding, female -Contraception: undecided -Follow-up 2 weeks for routine visit -Dispo: home in 1-3 days pending mother/ status
[2024-01-29] MEDS: OXYCODONE 5MG IMMEDIATE RELEASE TABLET 5 MG PO (09:55)
[2024-01-29] MEDS: ONDANSETRON 4MG ODT 4 MG SL (10:30)
[2024-01-29] MEDS: SENNA 8.6MG TABLET 8.59999999999999964 MG PO (15:52)
[2024-01-30] MEDS: IBUPROFEN 400 MG TABLET 800 MG PO (03:09)
[2024-01-30] MEDS: ACETAMINOPHEN 500MG TAB 1000 MG PO ×2 (03:09→08:53)
[2024-01-30] MEDS: SENNA 8.6MG TABLET 8.59999999999999964 MG PO (03:11)
--- NOTE | 2024-01-30 07:27 | P.DS_ITS ---
General Admission date:: 01/28/24 Discharge date: 01/30/24 HPI HPI HPI: Mrs Eunice Mancia is a very pleasant 28 yo at 39w1d, based off of LMP confirmed by 1st trimester ultrasound, who presents to [facility] Labor and Delivery for scheduled elective primary . She has vaginal delivery with 4th degree laceration followed by break down of repair and RV fistula. She is electing for . She has had good care. History of Present Criteria for establishing EDC:: LMP confirmed by 1st trimester US care: good care Ultrasounds: normal mid trimester US Obstetrical complications: none Medical complications: none Labs Blood type: A (+) positive Rubella: immune RPR/VDRL: nonreactive HBsAG: negative Hospital Course Hospital Course Hospital Course: Leta Mancia is a 28-year-old day #2 following a primary low- transverse delivery at 39 weeks gestation. Patient elected for primary delivery after fourth degree laceration and development of the fistula from her first . was uncomplicated. Routine delivery and course thus far. She is doing well and developing the urge to void. She is voiding without difficulty or dysuria. Reports her pain is well- controlled. She is bottlefeeding her female . Her lochia is scant. Patient is ambulating and tolerating p.o. without difficulty or nausea and vomiting. She desires discharge home today. Routine discharge structures reviewed with her and her and they both voiced understanding. All questions and concerns were addressed to her satisfaction Exam Data for Last 24 hours Vital signs and Labs for Last 24 Hours: Temp Pulse Resp BP Pulse Ox O2 Del Method 98.3 F 92 H 18 120/77 97 Room Air 01/29/24 08:19 01/29/24 08:19 01/29/24 08:19 01/29/24 08:19 01/29/24 08:19 01/29/24 08:19 I & O for Last 24 hours: Intake & Output 01/27/24 01/28/24 01/29/24 01/30/24 23:59 23:59 23:59 23:59 Intake Total 1800 / 1800 Balance 1800 / 1800 Weight 215 lb Constitutional Constitutional: no acute distress *Routine HEENT Exam Head: Present normocephalic Eye: Present EOMI and PERRL ENT: Present mucous membranes moist *Routine Neck Exam Neck: Present supple; Absent lymphadenopathy *Routine Respiratory Exam Respiratory: Present CTA bilaterally *Routine Cardiovascular Exam Cardiovascular: Present RRR *Routine Abdominal Exam Abdominal: Present soft and normoactive bowel sounds; Absent tenderness *Routine Extremities Exam Extremities: Absent cyanosis, clubbing or edema *Routine Skin Exam Skin: Present warm; Absent rash *Routine Neurological Exam Neurological: Present alert and oriented X3 DS: Diagnosis Discharge Diagnosis (1) 39 weeks gestation of : Status: Acute Code(s): Z3A.39 - 39 weeks gestation of (2) delivery delivered: Status: Acute Code(s): O82 - Encounter for delivery without indication (3) Anemia: Status: Acute Code(s): D64.9 - Anemia, unspecified Qualifiers: Anemia type: other cause Other causes of anemia: acute posthemorrhagic Qualified Code(s): D62 - Acute posthemorrhagic anemia Problem details: Stable. POD#2 s/p PLTCS -Doing well. VSS. Serial lochia and fundal checks. -Hemoglobin: 11.1--> 9.5 - asymptomatic anemia noted. Vitals stable. Continue monitoring. DC with Fe -EBL: 600mL. doing well currently, continue to monitor -A+/antibody negative -Bottle feeding, female infant -Contraception: undecided -Follow-up 2 weeks for routine visit -Dispo: home today pending mother/infant status Meds Home Medications and Allergies Home Medications Medication Instructions Recorded Confirmed Type vits no.126-ferrous fum 1 tab PO DAILY 06/27/23 01/28/24 History 28 mg iron-folic acid 800 mcg tablet (Classic ) acetaminophen 500 mg tablet 1,000 mg (2 x 500 mg) PO Q6H #60 01/30/24 Rx tabs ibuprofen 400 mg tablet 800 mg (2 x 400 mg) PO Q8H #30 tabs 01/30/24 Rx oxycodone 5 mg tablet 5 mg PO Q4HP PRN Moderate Pain 01/30/24 Rx (4-6) #24 tabs sennosides 8.6 mg tablet (Senna 8.6 mg PO BIDP PRN Constipation 01/30/24 Rx Laxative) #30 tabs simethicone 80 mg chewable tablet 160 mg (2 x 80 mg) PO Q4HP PRN Gas 01/30/24 Rx (Gas Relief 80 (simethicone)) Pain And Discomfort #60 tabs New Prescriptions to Start Prescriptions: oxycodone YogiRosemarie simethicone [Gas Relief 80 (simethicone)] Yogi,Rosemarie acetaminophen Yogi,Rosemarie ibuprofen Yogi,Rosemarie sennosides [Senna Laxative] Rosemarie Calix Allergies Allergy/AdvReac Type Severity Reaction Status Date / Time No Known Drug Allergies Allergy Verified 01/24/24 11:14 Discharge Plan Disposition Patient Disposition: Home, Self-Care Condition: Good Discharge Order Discharge Orders: Discharge Order (Routine); Ordered 01/30/24 Ordered By: Rosemarie Calix Follow up Plan Follow up with: Ida Reeder DO [Staff Physician] - 02/12/24 1:15 pm Prescriptions/Medication Reconciliation: New acetaminophen 500 mg Tablet 1,000 mg PO Q6H Qty: 60 0RF sennosides [Senna Laxative] 8.6 mg Tablet 8.6 mg PO BIDP PRN (Reason: Constipation) Qty: 30 0RF ibuprofen 400 mg Tablet 800 mg PO Q8H Qty: 30 3RF oxycodone 5 mg Tablet 5 mg PO Q4HP PRN (Reason: Moderate Pain (4-6)) Qty: 24 0RF simethicone [Gas Relief 80 (simethicone)] 80 mg Tablet,Chewable 160 mg PO Q4HP PRN (Reason: Gas Pain And Discomfort) Qty: 60 3RF Continued Classic 28 mg iron- 800 mcg tablet 1 tab PO DAILY Problem Reconciliation Problems Reviewed?: Yes Patient Discharge Instructions ACTIVITY: Limited activity DIET: regular diet Additional Instructions: Congratulations on the delivery of your sweet baby girl. It is my privilege to be apart of your OBGYN team and I am so thankful I could be a part of your special day. Discharge: 1. Take 800 mg Ibuprofen every 8 hours as needed for pain. You can also take 500-1000 mg of Tylenol in between doses, every 6-8 hours. Use prescription pain medicine for pain you feel in between 8 hour interval. -No driving while taking narcotic pain medications. In order to drive you should be able to slam on the brakes without significant abdominal pain. 2. Wean from prescription pain medicine first. Do not drive while taking it. 3. Prescription pain medicine can make you constipated. Colace can be taken 1-2 times per day as you need. Make sure to drink at least 8 cups of water per day. 4. Iron supplements can make you constipated. Colace can be taken 1-2 times per day as you need. You can take iron tablets every other day if constipation is too bad. 5. Nothing in the vagina for 6 weeks - no sex, douching, tampons. No tub baths 6. Do not lift greater than 15 pounds for 6 weeks, this is the equivalent of 2 gallons of milk. 7. Reasons to return to L&D or call On-Call doctor - fever (greater than 100.4) - heavy vaginal bleeding (soaking through 1 pad in less than 2 hours or passing clots that are egg sized) - vaginal discharge (malodorous and/or purulent) - bleeding or discharge from her incision - severe headaches, leg tenderness/edema, or any other symptoms that warrant immediate medical attention. 8. depression/blues - Normal to feel anxious/overwhelmed for first 2 weeks - Talk to your doctor if: anxiety lasts over 2 weeks, trouble bonding with baby, withdrawing from other family members, thoughts of harming yourself or others Rosemarie Calix, [facility] [phone] *Nothing in the Vagina for 6 weeks* *No strenuous activity* *No heavy lifting* *No tub baths until okay's by MD* Patient Instructions: Depression, Hemorrhage, DI for , DI for Pre-eclampsia, [facility] Post Discharge Instructions Providers Primary Care Provider: Matilde Joseph Admit Provider: Ida Reeder Attending Provider: Ida Reeder
--- NOTE | 2024-02-03 16:48 | EXP.ANES.II ---
[facility] Anesthesia Record Part II Anesthesia Record Part II Discharge Time: 09:35 Destination: Obstetric PACU nurse assessment reviewed?: Yes Patient Condition:: Good Anesthesia Complications:: None Swallowing reflex intact?: Yes Airway Patency: Patent Cyanosis?: No Blood Pressure: 98/58 SaO2: 98 Respiratory Rate: 17 Pulse Rate: 65 Temperature: 97.5 F Mental Status: Alert & Oriented Pain level:: 0 Nausea and/or vomitting:: None Intake, IV Amount: 0 Hydration: Adequate
[2024-02-03 16:49] VITALS: BP 98/58; PULSE 65; RESP 17; TEMP 36.4; O2SAT 98
== END 2024-01-30 09:50 | disposition home or self-care (01) | DRG 788 ==
PROVIDERS: Admitting Provider Obstetrics & Gynecology; PCP Nurse Practitioner Family; Visit Provider Obstetrics & Gynecology
PROC: 10D00Z1 Extraction of Products of Conception, Low, Open Approach (ICD-10-PCS; principal; 2024-01-28 07:30)
DX: O82 Encounter for cesarean delivery without indication (principal); Z3A.39 39 weeks gestation of pregnancy; Z37.0 Single live birth
CPT/HCPCS: 59514; 36415; 59025; 80053; 80307; 81001; 85025; 86850; 94761; 96374; G0283; J2405

== ENCOUNTER 2024-03-31 12:29 | Outpatient (CLI) | payer OTHER, SELFPAY ==
[2024-03-31 13:07] LABS: Alanine Aminotransferase 37 U/L (12-78); Albumin Level 4.3 g/dl (3.5-5.0); Albumin/Globulin Ratio 1.5 (1.1-1.8); Alkaline Phosphatase 68 U/L (38-126); Anion Gap 11.9 mEq/L (5-15); Aspartate Amino Transferase 32 U/L (14-36); Bilirubin,Total 0.4 mg/dl (0.2-1.3); Blood Urea Nitrogen 13 mg/dl (7-17); Calcium 9.1 mg/dl (8.4-10.2); Carbon Dioxide 29 mmol/L (22.0-30.0); Chloride 103 mmol/L (98-107); Estimated Glomerular Filt Rate 99 ml/min (>60); GFR (African American) 120 ML/MIN (>60); Globulin 2.8 g/dL (1.3-3.2); Glucose 95 mg/dl (74-100); Potassium 3.9 mmoL/L (3.5-5.1); Sodium 140 mmol/L (136-145); Total Protein,Serum 7.1 g/dl (6.3-8.2)
[2024-03-31 13:25] LABS: 25-OH Vitamin D, Total 24.6 ng/mL (30-100)
[2024-03-31 13:26] LABS: T4 (Thyroxine) 6.5 ug/dl (5.53-11.0); Triiodothryronine (T3) Uptake 30 % (23.5-40.5)
[2024-03-31 13:40] LABS: Thyroid Stimulating Hormone 1.66 uIU/mL (0.465-4.68)
== END 2024-03-31 23:59 | disposition home or self-care (01) ==
LOC: LAB 12:29
PROVIDERS: PCP Nurse Practitioner Family; Visit Provider Nurse Practitioner Family
DX: R53.83 Other fatigue (principal); Z91.89 Other specified personal risk factors, not elsewhere classified; D64.9 Anemia, unspecified
CPT/HCPCS: 80053; 82306; 84436; 84443; 84479

== ENCOUNTER 2024-04-03 16:43 | Outpatient (CLI) | payer OTHER, SELFPAY ==
[2024-04-03 17:05] LABS: Basophils # 0.1 K/mm3 (0-0.2); Basophils % 0.9 % (0.1-2.0); Eosinophils # 0.2 K/mm3 (0.0-0.4); Eosinophils % 2.5 % (0.1-12.0); Hematocrit 39.6 % (37.0-47.0); Hemoglobin 12.8 g/dL (12.2-16.2); Lymphocytes # 2.7 K/mm3 (0.7-4.5); Lymphocytes % 40.8 % (10-50); Mean Corpuscular HGB Conc 32.3 g/dL (31.8-35.4); Mean Corpuscular Hemoglobin 29.2 pg (27.0-31.2); Mean Corpuscular Volume 90.3 fl (81-99); Mean Platelet Volume 7.2 fl (7.4-10.4); Monocytes # 0.3 K/mm3 (0.1-1.0); Monocytes % 4.8 % (1.7-9.3); Neutrophils # 3.4 K/mm3 (1.8-7.8); Neutrophils % 50.9 % (37.0-80.0); Platelet Count 445 K/mm3 (142-424); Red Blood Count 4.38 M/mm3 (4.20-5.40); Red Cell Distribution Width 16.2 % (11.5-17.5); White Blood Count 6.6 K/mm3 (4.8-10.8)
[2024-04-03 17:48] LABS: Iron 55 ug/dL (37-170)
[2024-04-03 18:04] LABS: Total Iron Binding Capacity 381 ug/dL (265-497)
[2024-04-03 18:30] LABS: Ferritin 9.24 ng/ml (6.24-137)
[2024-04-03 19:54] LABS: Vitamin B12 863 pg/mL (239-931)
== END 2024-04-03 23:59 | disposition home or self-care (01) ==
LOC: LAB 16:44
PROVIDERS: PCP Nurse Practitioner Family; Visit Provider Nurse Practitioner Family
DX: R53.83 Other fatigue (principal); E61.1 Iron deficiency; Z91.89 Other specified personal risk factors, not elsewhere classified
CPT/HCPCS: 82607; 82728; 82746; 83540; 83550; 85025

== ENCOUNTER 2024-07-07 09:31 | Outpatient (CLI) | payer OTHER, SELFPAY ==
[2024-07-10 20:56] LABS: QuantiFERON-TB Gold Plus Negative (Negative)
== END 2024-07-07 23:59 | disposition home or self-care (01) ==
LOC: LAB 09:32
PROVIDERS: PCP Nurse Practitioner Family; Visit Provider Nurse Practitioner
DX: Z11.1 Encounter for screening for respiratory tuberculosis (principal)
CPT/HCPCS: 86480

== ENCOUNTER 2025-06-10 15:57 | Emergency (ER) | payer OTHER, SELFPAY ==
--- OUTSIDE RECORDS SUMMARY | 2025-06-10 16:07 | XMS_ITS | Clinical Summary ---
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 You shall make no further disclosure of thisinformation without the specific, written, and informed release of theindividual to whom it pertains, or as otherwise permitted by law. A generalauthorization for the release of medical or other information is not sufficientfor the purposes of therelease of HIV test results or diagnoses. [id number] Allergies No known active allergies Medications sulfamethoxazole -trimethoprim (BACTRIM DS) 800-160 mg per tablet Take 1 tablet by mouth. Active HYDROmorphone (DILAUDID) 2 MG tablet Take 2 mg by mouth every 6 hours as needed for Pain. Active Social History Tobacco Use Types Packs/Day Years Used Date Smoking Tobacco: Never Smokeless Tobacco: Never Alcohol Use Standard Drinks/Week Comments Yes 0 (1 standard drink = 0.6 oz pur e alcohol) Comments No Sex and Gender Information Value Date Recorded Sex Assigned at Not on file Legal Sex Female 11:03 AM EST Gender Identity Not on file Sexual Orientation Not on file Last Filed Vital Signs Vital Sign Reading Time Taken Comments Blood Pressure 128/84 01/02/2021 1:51 PM EST Pulse 91 01/02/2021 1:51 PM EST Temperature 36.6 C (97.8 F) 01/02/2021 1:51 PM EST Respiratory Rate - - Oxygen Saturation 98% 01/02/2021 1:51 PM EST Inhaled Oxygen Concentration 98% 01/02/2021 1 :51 PM EST Weight 88 kg (194 lb) 01/02/2021 1:51 PM EST Height 175.3 cm (5' 9 ) 01/02/2021 1:51 PM EST Body Mass Index 28.65 01/02/2021 1:51 PM EST Plan of Treatment Not on file Insurance [facility] Care Teams [employer] Sales Counter Manager Relationship Specialty Start Date End Date Matilde Spear NP [address] [place] [id number] PCP - General 12/30/20 Paco Blue MD [address] [place] [id number] Obstetrics and Gynecology 01/02/21
[2025-06-10 16:09] VITALS: BP 152/94; PULSE 87; RESP 18; TEMP 36.9; O2SAT 100; BMI 23.6
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
[2025-06-10] MEDS: LIDOCAINE 5% TRANSDERMAL PATCH 1 EACH TD (16:37)
[2025-06-10 17:01] LABS: Urine Pregnancy, HCG Qual. Negative (Negative)
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
[2025-06-10 17:41] VITALS: BP 128/85; PULSE 71
[2025-06-10] MEDS: METHOCARBAMOL 500MG TABLET 500 MG PO (17:58)
[2025-06-10] MEDS: IBUPROFEN 400 MG TABLET 800 MG PO (17:59)
[2025-06-10] MEDS: ACETAMINOPHEN 500MG TAB 1000 MG PO (17:59)
[2025-06-10] MEDS: ONDANSETRON 4MG ODT 4 MG SL (19:02)
[2025-06-10 19:40] VITALS: BP 122/77; PULSE 71; RESP 18; TEMP 36.6; O2SAT 97
[2025-06-10] MEDS: diazePAM 5MG TABLET 2.5 MG PO (19:50)
== END 2025-06-10 19:50 | disposition home or self-care (01) ==
PROVIDERS: Emergency Provider Emergency Medicine; PCP Nurse Practitioner Family
DX: S29.012A Strain of muscle and tendon of back wall of thorax, initial encounter (principal); R10.30 Lower abdominal pain, unspecified; V89.2XXA Person injured in unspecified motor-vehicle accident, traffic, initial encounter
CPT/HCPCS: 72125; 72128; 72131; 74176; 81025; 99285; Q0162